=== PATIENT | male | born 1970 | race Caucasian/White ===

== ENCOUNTER 2016-08-03 19:09 | Inpatient (IN) | payer BC ==
[2016-08-03] MEDS ORDERED: IV FLUID CONTINUATION 1,000 ML IV ONE (19:10)
[2016-08-03] MEDS ORDERED: SODIUM CHLORIDE 0.9% 1,000 ML IV ONE (19:15)
[2016-08-03] MEDS ORDERED: NITROGLYCERIN SL TABS 0.4 MG TAB SUBLINGUAL ONE ×3 (19:20→20:30)
[2016-08-03] MEDS ORDERED: MIDAZOLAM 2 MG/2 ML VIAL ONE (19:20)
[2016-08-03] MEDS ORDERED: MIDAZOLAM 2 MG/2 ML VIAL IVP ONE (19:21)
[2016-08-03] MEDS ORDERED: LIDOCAINE 2% INJ 20 MG/ML SQ ONE (19:25)
[2016-08-03] MEDS ORDERED: METOPROLOL TARTRATE 5 MG/5 ML VIAL IVP ONE ×3 (19:29→19:54)
[2016-08-03] MEDS: METOPROLOL TARTRATE 5 MG/5 ML VIAL IVP ONE ×2 (19:31→19:44)
[2016-08-03] MEDS ORDERED: BIVALIRUDIN BOLUS 250 MG/50 ML IV ONE (19:36)
[2016-08-03] MEDS ORDERED: BIVALIRUDIN 250 MG in SODIUM CHLORIDE 0.9% 50 ML IV ONE (19:37)
[2016-08-03] MEDS ORDERED: fentaNYL (PF) 50 MCG/ML 2 ML AMP ONE (19:41)
[2016-08-03] MEDS ORDERED: fentaNYL (PF) 50 MCG/ML 2 ML AMP IV ONE (19:42)
[2016-08-03] MEDS: HYDROmorphone 2 MG/ML 1 ML SYRINGE IVP ONE ×3 (19:44→20:20)
[2016-08-03] MEDS ORDERED: HYDROmorphone 2 MG/ML 1 ML SYRINGE ONE (19:44)
[2016-08-03] MEDS ORDERED: niCARdipine 25 MG/10 ML VIAL ONE (19:45)
[2016-08-03] MEDS: NITROGLYCERIN 1000MCG/10ML SYRINGE INTRACORON ONE ×2 (19:45→20:05)
[2016-08-03] MEDS ORDERED: niCARdipine Syringe (1,000 mcg/10 mL) INTRACORON ONE (19:54)
[2016-08-03] MEDS ORDERED: PRASUGREL 10 MG TAB ONE (20:11)
[2016-08-03] MEDS ORDERED: IOHEXOL 350 MG/ML 100 ML BOTTLE INJ ONE (20:15)
[2016-08-03] MEDS ORDERED: PRASUGREL 10 MG TAB PO ONE (20:20)
[2016-08-03] MEDS ORDERED: ATROPINE SULFATE 0.1 MG/ML 10ML SYRINGE IV PRN (20:31)
[2016-08-03] MEDS ORDERED: RX INFO: IV CONTRAST WAS GIVEN 1 EACH MISC MISCELLANE PRN (20:31)
[2016-08-03] MEDS ORDERED: MAG HYDROX/AL HYDROX/SIMETH 30 ML CUP PO PRN (20:31)
[2016-08-03] MEDS ORDERED: NITROGLYCERIN SL TABS 0.4 MG TAB SUBLINGUAL PRN (20:31)
[2016-08-03] MEDS ORDERED: ZOLPIDEM 5 MG TAB PO PRN (20:31)
[2016-08-03 20:51] LABS: Glucose,Whole Blood 113 mg/dL (75-99)
[2016-08-03] MEDS: SODIUM CHLORIDE 0.9% 1,000 ML IV SCH (20:56)
[2016-08-03] MEDS: ATORVASTATIN 80 MG TAB PO SCH (21:13)
[2016-08-03] MEDS: amLODIPine 5 MG TAB PO SCH (21:13)
[2016-08-03] MEDS: METOPROLOL TARTRATE 25 MG TAB PO SCH (21:14)
[2016-08-03 21:26] VITALS: BMI 31.8
[2016-08-03] MEDS: HYDROmorphone 1 MG/ML 1 ML SYRINGE IVP PRN (22:26)
[2016-08-04] MEDS ORDERED: HYDROmorphone 1 MG/ML 1 ML SYRINGE ONE (04:34)
[2016-08-04] MEDS: HYDROmorphone 1 MG/ML 1 ML SYRINGE IVP PRN (04:37)
[2016-08-04 04:51] LABS: Basophils # (A) 0.1 k/uL (0-0.2); Basophils % (A) 1 %; CH 30.1; CHCM 30.7; Eosinophils # (A) 0.1 k/uL (0-0.7); Eosinophils % (A) 1 %; HCT 47.2 % (39.0-53.0); HGB 14.9 gm/dL (13.0-17.5); Hypochromasia Slight; Luc # (Auto) 0.29; Luc % (Auto) 3; Lymphocytes # (A) 1.5 k/uL (1.0-4.8); Lymphocytes % (A) 15 %; MCHC 31.5 g/dL (31.0-37.0); MCV 98.5 fL (80.0-100.0); Mean Platelet Volume 7.6; Monocytes # (A) 0.8 k/uL (0-1.0); Monocytes % (A) 8 %; Neutrophils # (A) 7.1 k/uL (1.3-7.7); Neutrophils % (A) 73 %; RDW 14.4 % (11.5-15.5); WBC 9.9 k/uL (3.8-10.6); WBC (Perox) 10.01
[2016-08-04 04:58] LABS: Anion Gap 13 mmol/L; Blood Urea Nitrogen 14 mg/dL (9-20); Calcium 8.7 mg/dL (8.4-10.2); Carbon Dioxide 22 mmol/L (22-30); Chloride 102 mmol/L (98-107); Glucose 106 mg/dL (74-99); Non-African American GFR(MDRD) >60 (>60 ml/min/1.73 sqM); Potassium 5.1 mmol/L (3.5-5.1); Sodium 137 mmol/L (137-145)
--- NOTE | 2016-08-04 05:08 | HP ---
DATE OF ADMISSION: This is a 45-year-old gentleman who sees Dr. Dmitri Mclean in the outpatient setting. 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 He also has hypertension. He has had cervical spine and lumbar spine surgeries performed. The last surgery was in April 2016 of his cervical spine surgery. He does quite a bit of weight lifting and some elliptical exercise on a regular basis. He was doing fine until about 3:00 today. He felt a little uncomfortable between 3 and 4. At 3:45, started lifting weights and as he was lifting weights he developed chest pressure and came into the emergency room with at [facility] and he was having ongoing chest pain, diaphoresis. EKG revealed anterior ST elevation and after reviewing the EKG, I promptly advised him to be transferred to the [facility]. I evaluated the patient in the [facility]. He was having chest pain, hemodynamically stable. He was in fact hypertensive and indicated to me the pain was constant without any waxing or waning since about 4:00 today. I saw him in the emergency room about a little after 7 p.m. I proceeded to perform coronary angiography and intervention explained to the patient the rationale, risks, benefits, options and proceeded to perform the procedure expeditiously. PAST MEDICAL HISTORY: 1. Strong family history of coronary artery disease. 2. Hypertension. 3. 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 The last surgery was of the cervical spine sometime in April of last year. Medications at home include: 1. Amlodipine 2. Lisinopril. ALLERGIES: None. REVIEW OF SYSTEMS: Remarkable for some arthritic pains, but no hematemesis, melena, genitourinary symptoms, fever with chills, or cough with expectoration. On examination, blood pressure was 170/96, pulse rate was about 100 per minute. HEENT: Unremarkable. Fundus was not examined by me. Neck is supple. No JVD. I do not hear a carotid bruit. Heart exam reveals S1 and S2 heard normally. Heart sounds heard distantly. Lungs are clear. Abdomen is soft, nontender. Lower extremities reveal normal pulses. No edema. Central nervous system was normal. EKG revealed sinus mechanism, J-point elevation and ST elevation in leads V1 to V4 suggestive of acute anterior DE. IMPRESSION: 1. Acute anterior ST elevation myocardial infarction. 2. Hypertension. 3. Episode of chest pain occurred when the patient was doing intense activity, lifting heavy weights, probably plaque rupture situation. RECOMMENDATIONS: Urgent coronary angiography and intervention was advised and I proceeded to perform procedure expeditiously. Risks, benefits, options were explained.
[2016-08-04] MEDS: METOPROLOL TARTRATE 25 MG TAB PO SCH (09:04)
[2016-08-04] MEDS: LISINOPRIL 20 MG TAB PO SCH (09:04)
[2016-08-04] MEDS: ASPIRIN 81 MG CHEW PO SCH (09:04)
--- NOTE | 2016-08-04 10:53 | CC ---
DATE OF SERVICE: 08/03/2016. PROCEDURE: Left heart catheterization and coronary angiography. PERFORMED BY: Dr. Delores Merchant. CLINICAL INFORMATION: Mr. Pablo Jules is a 45-year-old gentleman with a strong family history of premature coronary artery disease, hypertension, and cervical and lumbar spine degenerative disease came into [facility] emergency room with chest pain ST elevation involving anterior leads and he was advised prompted coronary angiography and transferred to [facility] for the procedure. Risks, benefits, options and rationale were explained. PROCEDURE NOTE: Under local anesthesia and strict aseptic precautions, a 6 Persian introducer was placed in the right femoral artery. Using a standard right Asmita catheter, I performed coronary angiography. I used the same catheter to check LV pressures, but I gram was not performed. I used guide catheter for left coronary injection and then proceeded to perform intervention expeditiously. Left ventriculogram was not performed. CORONARY ANGIOGRAPHIC FINDINGS : RIGHT CORONARY ARTERY: Large dominant vessel. No significant disease, distally bifurcates into PDA and PLV, both of which supply a sizable amount of myocardium. Right coronary artery is free of significant disease and is a very dominant vessel. LEFT MAIN CORONARY ARTERY: A short, patent, disease-free vessel that immediately bifurcates into LAD and circumflex. LEFT ANTERIOR DESCENDING CORONARY ARTERY: This vessel gives off 2 small diagonal branch and then is totally occluded, seen as a stump, in the cranial projection. Opacified segment of LAD and diagonal are free of significant disease, have minor irregularities. LEFT POSTERIOR CIRCUMFLEX CORONARY ARTERY: Technically, a nondominant vessel; gives off a single obtuse marginal that runs in the AV groove, has minor irregularities. No significant disease is noted in the circumflex system. LEFT VENTRICULOGRAM: This was not performed. FINAL IMPRESSION: This patient has a right dominant system, no significant disease in the dominant RCA and the nondominant circumflex. LAD is totally occluded after the second diagonal branch and this appears to the culprit lesion. This is a flush 100% occlusion culprit vessel. LV pressures were elevated but LV gram was not performed. RECOMMENDATIONS: I recommended intervention of the LAD and proceeded to perform this in the same setting. The patient received conscious sedation of about 15 minutes during coronary angiography with Versed and Benadryl.
--- NOTE | 2016-08-04 10:59 | PTCA ---
DATE OF SERVICE: 08/03/2016. PROCEDURE: PTCA and stenting of totally occluded mid LAD performed in the setting of an acute MT as a primary intervention. Performed by: Dr. Delores Merchant. CLINICAL INFORMATION: Mr. Pablo Jules is a 45-year-old gentleman with a strong family history of premature coronary artery disease, hypertension, and cervical and lumbar spine degenerative disease came into [facility] emergency room with chest pain ST elevation involving anterior leads and he was advised prompted coronary angiography and transferred to [facility] for the procedure. Risks, benefits, options and rationale were explained. PROCEDURE NOTE: The existing 6 Macedonian introducer in the right femoral artery was used to perform the procedure. I used a standard left Asmita guide catheter to cannulate the left coronary artery. A BMW wire was used to cross the lesion. A 2.5 caliber, 12 mm long Trek balloon was used to dilate the total occlusion. The patient had ongoing chest pain and there was improvement, some thrombus dislodged and went distally, had more chest pain, but remained hemodynamically stable. I then advanced initially a 22 mm long, 3.0 caliber Xience stent, but this stent was longer and therefore I took this out and switched over to an 18 mm long, 3.0 caliber Xience stent and deployed this 14 atmospheres. There was significant improvement in angiographic appearance but the proximal portion of the stent still was not well expanded. I then used a 3.5 caliber 15 mm long NC Trek balloon and with this I gave a prolonged inflation. Excellent angiographic result was achieved. Patient ST segments improved, but did not normalize. His chest pain was relieved completely. He was hemodynamically stable. He received Angiomax bolus and infusion. He also received 60 mg of Prasugrel. Excellent angiographic result was achieved. He has one drug-eluting stent, a Xience 18 mm length in the mid LAD. Excellent angiographic result was noted. Total relief of chest pain was noted. EKG improved, but did not normalize. The sheath was then taken out and a Perclose device used to secure hemostasis and he was sent to the room in stable condition. Results were then discussed with the patient and his . He was sent to the ICU in stable condition. Excellent angiographic result without complication was achieved. This patient received conscious sedation for about 40 minutes during percutaneous coronary intervention of the LAD. This was provided with a combination of Versed, Dilaudid and also Benadryl. The patient was observed very closely for oxygenation. The patient tolerated the procedure well without complications.
--- NOTE | 2016-08-04 11:01 | LTR ---
August 03, 2016 RE: Jorge A Pablo Dear Dr. Mclean: Thank you for the opportunity to participate in the care of Mr. Pablo Jules. This gentleman presented with acute anterior CT to [facility], transferred to [facility], underwent prompt intervention and stenting of mid LAD with a drug-eluting stent. Excellent angiographic result was achieved. He will have myocardial damage but hopefully the damage will be smaller. He will be on dual antiplatelet therapy without interruption for one year along with statin and beta blockers. Thank you for your kind referral. Please call with questions. With kindest regards, Sincerely, ADDI SEAMAN MD
--- NOTE | 2016-08-04 12:23 | ECHOF ---
Referral Reason:Acute Ant MD S/P PCI of LAD MEASUREMENTS -------- HEIGHT: 180.3 cm WEIGHT: 102.5 kg BP: 149/87 RVIDd: 3.5 cm (< 3.3) IVSd: 1.1 cm (0.6 - 1.1) LVIDd: 5.1 cm (3.9 - 5.3) LVPWd: 1.3 cm (0.6 - 1.1) IVSs: 1.4 cm LVIDs: 4.0 cm LVPWs: 1.9 cm LA Diam: 3.7 cm (2.7 - 3.8) LAESV Index (A-L): 32.96 ml/m Ao Diam: 3.3 cm (2.0 - 3.7) AV Cusp: 2.5 cm (1.5 - 2.6) MV EXCURSION: 22.213 mm (> 18.000) MV EF SLOPE: 118 mm/s (70 - 150) EPSS: 0.2 cm MV E Chito: 0.84 m/s MV DecT: 159 ms MV A Chito: 0.72 m/s MV E/A Ratio: 1.17 RAP: 5.00 mmHg RVSP: 36.22 mmHg FINDINGS -------- Sinus rhythm. This was a technically good study. The left ventricular size is normal. There is mild concentric left ventricular hypertrophy. Overall left ventricular systolic function is moderately impaired with, an EF between 35 - 40 %. Mid anterior LV wall motion is hypokinetic. Mid anteroseptal LV wall motion is hypokinetic. Apical anterior LV wall motion is hypokinetic. Apical lateral LV wall motion is hypokinetic. Apical septum LV wall motion is akinetic. The right ventricle is mildly enlarged. LA is midly dilated 29-33ml/m2. The right atrium is normal in size. The aortic valve is trileaflet and appears structurally normal. The mitral valve is normal. Mild mitral regurgitation is present. Mild tricuspid regurgitation present. There is mild pulmonary hypertension. The right ventricular systolic pressure, as measured by Doppler, is 36.22mmHg. Trace/mild (physiologic) pulmonic regurgitation. Possible Thrombus in LV Surprise The aortic root size is normal. There is no pericardial effusion. CONCLUSIONS -------- 1. Sinus rhythm. 2. The aortic valve is trileaflet and appears structurally normal. 3. Mild tricuspid regurgitation present. 4. There is mild pulmonary hypertension. 5. Trace/mild (physiologic) pulmonic regurgitation. 6. Possible Thrombus in LV Surprise 7. The aortic root size is normal. 8. There is no pericardial effusion. 9. This was a technically good study. 10. There is mild concentric left ventricular hypertrophy. 11. Mid anterior LV wall motion is hypokinetic. 12. Mid anteroseptal LV wall motion is hypokinetic. 13. Apical anterior LV wall motion is hypokinetic. 14. Apical septum LV wall motion is akinetic. 15. The right ventricle is mildly enlarged. 16. LA is midly dilated 29-33ml/m2. BRICKMASON APPRENTICE: Peggy White RDCS
[2016-08-04] MEDS: PRASUGREL 10 MG TAB PO SCH (12:57)
[2016-08-04] MEDS: HYDROcodone/APAP 10-325MG 1 EACH TAB PO PRN ×2 (13:08→18:29)
[2016-08-04 15:09] LABS: Cholesterol 157 mg/dL (<200); HDL Cholesterol 20 mg/dL (40-60); Triglycerides 103 mg/dL (<150)
[2016-08-04] MEDS: SODIUM CHLORIDE 0.9% 1,000 ML IV SCH (16:29)
[2016-08-04] MEDS: SPIRONOLACTONE 25 MG TAB PO SCH ×2 (16:29→17:23)
--- NOTE | 2016-08-04 17:13 | PN ---
45-year-old gentleman admitted by Dr. Delores Merchant with acute inferior myocardial infarction, primary care physician is Dr. Mclean. No questions. The patient is known to have hypertension and had cervical surgery in April and the patient developed acute chest pain while he was lifting weights and came in with anterior myocardial wall infarction and patient and cardiac catheterization and angioplasty done by my associate, mid LAD was totally occluded and was stented. Patient's ejection fraction is 35% to 40% at the present time with hypokinetic anterior wall and apex. Patient is doing very well. Patient is a nonsmoker, other than strong family history of coronary artery disease, hypertension age and gender, do not know about the cholesterol and will get lipid panels in the morning. It has been ordered after the heart cath. Patient is currently on appropriate medications. We will start him on spironolactone because of the LV dysfunction and change metoprolol to carvedilol 6.25 mg p.o. b.i.d., and add spironolactone and along with Lisinopril 20 mg. Patient's vital signs are stable with a pulse rate of 55 beats per minute and regular, blood pressure of 141/71, respirations of 20. Head normocephalic. HEENT unremarkable. Neck is supple. No thyroid enlargement. No bruit noted. Good carotid upstroke bilaterally. Chest is symmetrical. CARDIAC EXAMINATION: Regular rate and rhythm. S1 and S2. Patient is already on Effient, aspirin, antiplatelet agents and also on Amlodipine for the blood pressure. ABDOMEN: Soft, no organomegaly. Complained of mild pain, small hematoma without any bruit noted. If there is continued pain we will do an ultrasound of the groin. Patient was informed of the findings of the echocardiogram and I spoke with the family at length about taking all these medications and trying to relax until the groin heals before he goes back to work. Patient wants to go back to work as soon as possible. ASSESSMENT: 1. Acute anterior myocardial wall infarction, status post stenting of the mid left anterior descending coronary artery. 2. Hypertension. 3. Hyperlipidemia. 4. Strong family history of coronary artery disease. Patient's prognosis is guarded with continued medical therapy.
[2016-08-04] MEDS: CARVEDILOL 6.25 MG TAB PO SCH (17:23)
[2016-08-04] MEDS: ATORVASTATIN 80 MG TAB PO SCH (20:10)
[2016-08-04] MEDS: amLODIPine 5 MG TAB PO SCH (20:10)
[2016-08-05] MEDS: HYDROcodone/APAP 10-325MG 1 EACH TAB PO PRN ×2 (04:42→12:33)
[2016-08-05] MEDS: CARVEDILOL 6.25 MG TAB PO SCH (06:49)
[2016-08-05] MEDS: ASPIRIN 81 MG CHEW PO SCH (07:41)
[2016-08-05] MEDS: SPIRONOLACTONE 25 MG TAB PO SCH (07:41)
[2016-08-05] MEDS: PRASUGREL 10 MG TAB PO SCH (07:42)
[2016-08-05] MEDS: LISINOPRIL 20 MG TAB PO SCH (07:42)
[2016-08-05 09:25] VITALS: RESP 16; TEMP 99.3
--- NOTE | 2016-08-05 09:34 | P.PN ---
Subjective Principal diagnosis: Acute anterior wall myocardial infarction This is a pleasant 45-year-old gentleman with history of hypertension , strong family history of premature coronary artery disease, history of cervical spine and lumbar spine degenerative disease. He presented to the hospital with an acute anterior wall myocardial infarction. Patient underwent angioplasty with stenting of the left anterior descending artery. Echocardiogram with Doppler study was performed which revealed an ejection fraction of 35-40%. Echo also revealed a possible thrombus in the LV apex. Blood pressure this morning 148/60 with a heart rate in the 80s. Temperature 99.3. CBC normal. Potassium 5.1, BUN 14, creatinine 0.8. Patient is currently on aspirin 81 mg daily, Lipitor 80 mg daily, Coreg 6.25 mg twice a day , lisinopril 20 mg daily, Effient 10 mg daily, Aldactone 25 mg daily, Norvasc 5 mg daily, and sublingual nitroglycerin as needed for chest pain. He was seen and examined this morning, denies any chest pain or difficulty in breathing. He has been up ambulating in the hallway without any difficulty. No arrhythmias have been noted on the monitor. Objective - Vital Signs Vital signs: Vital Signs Temp 97.2 F L 08/05/16 04:00 Pulse 83 08/05/16 04:00 Resp 18 08/05/16 04:00 BP 127/89 08/05/16 04:00 Pulse Ox 98 08/05/16 04:00 Intake & Output 08/04/16 08/05/16 08/05/16 18:59 06:59 18:59 Intake Total 600 1400 0 Output Total 1280 Balance -680 1400 0 Weight 103.7 kg Intake: IV 1400 Sodium Chloride 0.9% 1, 1400 000 ml @ 75 mls/hr IV . [id number] BESSIE Rx#:[id number] Intake, IV Titration 600 Amount Sodium Chloride 0.9% 1, 600 000 ml @ 75 mls/hr IV . [id number] BESSIE Rx#:[id number] Oral 0 Output: Urine 1280 Other: # Voids 1 0 - Exam PHYSICAL EXAMINATION: HEENT: Head is atraumatic, normocephalic. Pupils equal, round. Neck is supple. There is no elevated jugular venous pressure. HEART EXAMINATION: Heart S1, S2 normal. No murmur or gallop heard. CHEST EXAMINATION: Lungs are clear to auscultation and precussion. No chest wall tenderness is noted on palpation or with deep breathing. ABDOMEN: Soft, nontender. Bowel sounds are heard. No organomegaly noted. Right groin, small nodule felt, mild tenderness, no bruit, no hematoma. EXTREMITIES: 2+ peripheral pulses with no evidence of peripheral edema and no calf tenderness noted. NEUROLOGIC patient is awake, alert and oriented -3. . - Labs CBC & Chem 7: 08/04/16 04:14 08/04/16 04:14 Labs: Abnormal Lab Results - Last 24 Hours (Table) 08/04/16 Range/Units 04:14 LDL Cholesterol, Calc 116 H (0-99) mg/dL HDL Cholesterol 20 L (40-60) mg/dL Assessment and Plan (1) Anterior myocardial infarction Status: Acute (2) Presence of stent in LAD coronary artery Status: Acute (3) HTN (hypertension) Status: Acute (4) Hyperlipemia Status: Acute (5) Family history of coronary arteriosclerosis Status: Acute (6) Degenerative disc disease Status: Acute Plan: Echocardiogram with Doppler study was reviewed by Dr. Brown, who felt that there were is no evidence of apical thrombus. Patient is quite eager to be discharged home today. He was advised that we would like to keep him for another 24 [address] He spoke with Dr. Brown, who felt that he could be discharged home with the advice to take it easy. Patient will be discharged home on aspirin 81 mg daily, Lipitor 80 mg daily, Coreg 6.25 mg one tablet by mouth twice a day, lisinopril 20 mg daily, Effient 10 mg daily, Aldactone 25 mg daily, Norvasc 5 mg daily, sublingual nitroglycerin as needed for chest pain. Patient has been provided prescriptions for all of the above medications and he has been educated regarding them. We will make him a follow-up appointment to see Dr. VJ Merchant in the office next week. DNP note has been reviewed, I agree with a documented findings and plan of care. Patient was seen and examined.
[2016-08-05 09:51] VITALS: BP 124/73; PULSE 84
== END 2016-08-05 15:53 | disposition home or self-care (01) | DRG 247 ==
LOC: 6ICU 19:13 → 6SEL 08-04 19:58
PROVIDERS: ADMIT Internal Medicine Interventional Cardiology; ATTEND Internal Medicine Interventional Cardiology
PROC: B2111ZZ Fluoroscopy of Multiple Coronary Arteries using Low Osmolar Contrast (ICD-10-PCS; 2016-08-03)
PROC: B2151ZZ Fluoroscopy of Left Heart using Low Osmolar Contrast (ICD-10-PCS; 2016-08-03)
PROC: 027034Z Dilation of Coronary Artery, One Artery with Drug-eluting Intraluminal Device, Percutaneous Approach (ICD-10-PCS; principal; 2016-08-03 19:13)
PROC: 4A023N7 Measurement of Cardiac Sampling and Pressure, Left Heart, Percutaneous Approach (ICD-10-PCS; 2016-08-03 19:13)
DX: I21.09 ST elevation (STEMI) myocardial infarction involving other coronary artery of anterior wall (principal); I10 Essential (primary) hypertension; I25.10 Atherosclerotic heart disease of native coronary artery without angina pectoris; E78.5 Hyperlipidemia, unspecified; M51.36 Other intervertebral disc degeneration, lumbar region; M50.30 Other cervical disc degeneration, unspecified cervical region; Z82.49 Family history of ischemic heart disease and other diseases of the circulatory system; Z79.899 Other long term (current) drug therapy
CPT/HCPCS: 80048; 80061; 84484; 85025; 85347; 93306; 93458; 94760

== ENCOUNTER 2018-06-08 00:01 | Emergency (ER) | payer BC ==
[2018-06-08] MEDS ORDERED: DIAZEPAM 5 MG/ML 2 ML INJ IVP STA (00:27)
[2018-06-08] MEDS ORDERED: SODIUM CHLORIDE 0.9% 500 ML 500 ML IV STA (00:27)
[2018-06-08] MEDS ORDERED: HYDROmorphone 2 MG/ML 1 ML SYRINGE IVP STA ×2 (00:27→03:00)
[2018-06-08] MEDS ORDERED: ONDANSETRON 4 MG/2 ML VIAL IVP STA (00:27)
[2018-06-08 00:48] LABS: Basophils % (A) 0 %; Eosinophils # (A) 0.4 k/uL (0-0.7); Eosinophils % (A) 3 %; HCT 46.5 % (39.0-53.0); HGB 15.3 gm/dL (13.0-17.5); Lymphocytes # (A) 1.3 k/uL (1.0-4.8); Lymphocytes % (A) 12 %; MCH 31.9 pg (25.0-35.0); MCV 96.7 fL (80.0-100.0); Monocytes # (A) 0.7 k/uL (0-1.0); Monocytes % (A) 7 %; Neutrophils # (A) 8.3 k/uL (1.3-7.7); Neutrophils % (A) 76 %; Platelet Count 276 k/uL (150-450); RDW 13.3 % (11.5-15.5); WBC 10.8 k/uL (3.8-10.6)
[2018-06-08 00:56] LABS: ALT 85 U/L (21-72); AST 51 U/L (17-59); Albumin 3.6 g/dL (3.5-5.0); Alkaline Phosphatase 33 U/L (38-126); Anion Gap 9 mmol/L; Blood Urea Nitrogen 15 mg/dL (9-20); Calcium 8.8 mg/dL (8.4-10.2); Carbon Dioxide 23 mmol/L (22-30); Chloride 106 mmol/L (98-107); Glucose 129 mg/dL (74-99); Magnesium 1.8 mg/dL (1.6-2.3); Potassium 4.4 mmol/L (3.5-5.1); Sodium 138 mmol/L (137-145); Total Bilirubin 0.6 mg/dL (0.2-1.3); Total Protein 6.4 g/dL (6.3-8.2)
[2018-06-08 01:06] LABS: INR 0.8 (<1.2); Partial Thromboplastin Time 21.9 sec (22.0-30.0); Prothrombin Time 9.3 sec (9.0-12.0)
--- NOTE | 2018-06-08 01:23 | ED ---
Back Pain HPI - General Chief Complaint: Back Pain/Injury Stated Complaint: Back Pain Time Seen by Provider: 06/08/18 00:20 Source: patient Limitations: no limitations - History of Present Illness Initial Comments: 47-year-old male patient presents to the emergency department today for evaluation of upper back pain. Patient states there is an intense sharp stabbing pain between his shoulder blades. Patient states the pain started on Wednesday but has been progressively worsening since its onset. Patient states that today the pain is unbearable. States he cannot take a breath, cough, or move without the pain becoming significantly worse. Patient states he feels short of breath with this. Denies any chest pain. Denies any abdominal pain, nausea, vomiting, or sweats. Denies any dizziness or weakness. Patient states he does have history of myocardial infarction hypertension. Patient states he has been taking his medications as directed. Patient denies any recent rash, fever, chills, diarrhea, constipation, back pain, numbness, tingling, hematuria , dysuria, urinary urgency, urinary frequency, headache, visual changes, or any other complaints. - Related Data Home Medications Medication Instructions Recorded Confirmed Diazepam [Valium] 5 mg PO TID PRN 08/03/16 08/03/16 Gabapentin [Neurontin] 300 mg PO TID 08/03/16 08/03/16 HYDROcodone/APAP 10-325MG [[place] 1 tab PO TID PRN 08/03/16 08/03/16 10-325] Loratadine-Pseudoeph 10-240 mg 1 tab PO DAILY PRN 08/03/16 08/03/16 [Claritin-D 24 Hr] Previous Rx's Medication Instructions Recorded Aspirin 81 mg PO DAILY #30 chew 08/05/16 Atorvastatin [Lipitor] 80 mg PO HS #30 tab 08/05/16 Carvedilol [Coreg] 6.25 mg PO BID-W/MEALS #60 tab 08/05/16 Lisinopril [Zestril] 20 mg PO DAILY #30 tab 08/05/16 Nitroglycerin Sl Tabs [Nitrostat] 0.4 mg SUBLINGUAL Q5M PRN #25 tab 08/05/16 Prasugrel [Effient] 10 mg PO DAILY #30 tab 08/05/16 Spironolactone [Aldactone] 25 mg PO DAILY #30 tab 08/05/16 amLODIPine [Norvasc] 5 mg PO HS #30 tab 08/05/16 Diazepam [Valium] 5 mg PO Q8H PRN 3 Days #9 tab 06/08/18 Hydrocodone/Acetaminophen [[place] 1 tab PO Q6HR PRN #12 tab 06/08/18 5-325] Allergies Allergy/AdvReac Type Severity Reaction Status Date / Time No Known Allergies Allergy Verified 06/08/18 00:08 Review of Systems ROS Statement: Those systems with pertinent positive or pertinent negative responses have been documented in the HPI. ROS Other: All systems not noted in ROS Statement are negative. Past Medical History Past Medical History: Hypertension, Myocardial Infarction ([place]) History of Any Multi-Drug Resistant Organisms: None Reported Past Surgical History: Back Surgery, Heart Catheterization With Stent, Orthopedic Surgery Additional Past Surgical History / Comment(s): c-spine fusion x3, lower back fusion, ACL repair to Right knee x2, carpal tunnel sx to left hand, Past Anesthesia/Blood Transfusion Reactions: Postoperative Nausea & Vomiting ( PONV) Past Psychological History: No Psychological Hx Reported Smoking Status: Never smoker Past Alcohol Use History: Rare Past Drug Use History: None Reported General Exam Limitations: no limitations General appearance: alert, in no apparent distress, other (This is a well- developed, well-nourished adult male patient in mild distress related to pain. Vital signs upon presentation are temperature 98.3F, pulse 100, respirations 25 , blood pressure 201/111, pulse ox 99% on room air.) Eye exam: Present: normal appearance, PERRL, EOMI. Absent: scleral icterus, conjunctival injection, periorbital swelling ENT exam: Present: normal exam, normal oropharynx, mucous membranes moist Respiratory exam: Present: normal lung sounds bilaterally. Absent: respiratory distress, wheezes, rales, rhonchi, stridor Cardiovascular Exam: Present: normal rhythm, tachycardia, normal heart sounds. Absent: systolic murmur, diastolic murmur, rubs, gallop, clicks GI/Abdominal exam: Present: soft, normal bowel sounds. Absent: distended, tenderness, guarding, rebound, rigid Extremities exam: Present: normal inspection, full ROM, normal capillary refill , other (Skin to all 4 extremities is pink, warm, and dry. Cap refills less than 3 seconds. Radial pulses, pedal pulses, posttibial pulses are 2+ and equal bilaterally.). Absent: tenderness, pedal edema, joint swelling, calf tenderness Neurological exam: Present: alert, oriented X3, CN II-XII intact Psychiatric exam: Present: normal affect, normal mood Skin exam: Present: warm, dry, intact, normal color. Absent: rash Course Vital Signs 06/08/18 06/08/18 06/08/18 00:05 01:19 02:07 Temperature 98.3 F Pulse Rate 100 96 Respiratory 25 H 18 Rate Blood Pressure 201/111 174/108 147/84 O2 Sat by Pulse 99 96 Oximetry 06/08/18 03:08 Temperature 99.2 F Pulse Rate 95 Respiratory 18 Rate Blood Pressure 165/94 O2 Sat by Pulse 93 L Oximetry Medical Decision Making - Medical Decision Making 47-year-old male patient presented to the emergency department today for evaluation of severe pain between the shoulder blades. Physical examination did reveal tenderness surrounding the area. Patient reported increased pain with deep breathing, coughing, or moving. Patient did have significantly elevated blood pressure upon arrival. There was some concern for aortic dissection so we did perform CT angiography of the chest, abdomen, pelvis. This testing was negative for evidence of dissection or aneurysm. Labs reviewed and did have evidence of elevated troponin at 0.037. I did discuss findings with the patient and given his history of myocardial infarction and stent placement did recommend admission for cardiology evaluation and repeat troponin. Patient refused admission stating that he had to take care of his children. I did discuss risks of leaving including , permanent disability , or worsening of his symptoms. He verbalizes understanding and requested to be discharged. He did sign an AGAINST MEDICAL ADVICE form. He is instructed to follow-up with his first calender worker for recheck as soon as possible. He will be discharged also with medication to treat the muscle spasm of the upper back. He is instructed to follow-up with his primary care physician for further evaluation of this. Return parameters discussed in detail. He verbalizes understanding and agrees with this plan. - Lab Data Result diagrams: 06/08/18 00:34 06/08/18 00:34 Lab Results 06/08/18 06/08/18 06/08/18 Range/Units 00:34 00:34 00:34 WBC 10.8 H (3.8-10.6) k/uL RBC 4.80 (4.30-5.90) m/uL Hgb 15.3 (13.0-17.5) gm/dL Hct 46.5 (39.0-53.0) % MCV 96.7 (80.0-100.0) fL MCH 31.9 (25.0-35.0) pg MCHC 33.0 (31.0-37.0) g/dL RDW 13.3 (11.5-15.5) % Plt Count 276 (150-450) k/uL Neutrophils % 76 % Lymphocytes % 12 % Monocytes % 7 % Eosinophils % 3 % Basophils % 0 % Neutrophils # 8.3 H (1.3-7.7) k/uL Lymphocytes # 1.3 (1.0-4.8) k/uL Monocytes # 0.7 (0-1.0) k/uL Eosinophils # 0.4 (0-0.7) k/uL Basophils # 0.0 (0-0.2) k/uL PT (9.0-12.0) sec INR (<1.2) APTT (22.0-30.0) sec Sodium 138 (137-145) mmol/L Potassium 4.4 (3.5-5.1) mmol/L Chloride 106 (98-107) mmol/L Carbon Dioxide 23 (22-30) mmol/L Anion Gap 9 mmol/L BUN 15 (9-20) mg/dL Creatinine 0.87 (0.66-1.25) mg/dL Est GFR (CKD-EPI)AfAm >90 (>60 ml/min/1.73 sqM) Est GFR (CKD-EPI)NonAf >90 (>60 ml/min/1.73 sqM) Glucose 129 H (74-99) mg/dL Calcium 8.8 (8.4-10.2) mg/dL Magnesium 1.8 (1.6-2.3) mg/dL Total Bilirubin 0.6 (0.2-1.3) mg/dL AST 51 (17-59) U/L ALT 85 H (21-72) U/L Alkaline Phosphatase 33 L (38-126) U/L Total Creatine Kinase 221 H (55-170) U/L CK-MB (CK-2) 3.8 H (0.0-2.4) ng/mL CK-MB (CK-2) Rel Index 1.7 Troponin I 0.037 H* (0.000-0.034) ng/mL Total Protein 6.4 (6.3-8.2) g/dL Albumin 3.6 (3.5-5.0) g/dL 06/08/18 Range/Units 00:34 WBC (3.8-10.6) k/uL RBC (4.30-5.90) m/uL Hgb (13.0-17.5) gm/dL Hct (39.0-53.0) % MCV (80.0-100.0) fL MCH (25.0-35.0) pg MCHC (31.0-37.0) g/dL RDW (11.5-15.5) % Plt Count (150-450) k/uL Neutrophils % % Lymphocytes % % Monocytes % % Eosinophils % % Basophils % % Neutrophils # (1.3-7.7) k/uL Lymphocytes # (1.0-4.8) k/uL Monocytes # (0-1.0) k/uL Eosinophils # (0-0.7) k/uL Basophils # (0-0.2) k/uL PT 9.3 (9.0-12.0) sec INR 0.8 (<1.2) APTT 21.9 L (22.0-30.0) sec Sodium (137-145) mmol/L Potassium (3.5-5.1) mmol/L Chloride (98-107) mmol/L Carbon Dioxide (22-30) mmol/L Anion Gap mmol/L BUN (9-20) mg/dL Creatinine (0.66-1.25) mg/dL Est GFR (CKD-EPI)AfAm (>60 ml/min/1.73 sqM) Est GFR (CKD-EPI)NonAf (>60 ml/min/1.73 sqM) Glucose (74-99) mg/dL Calcium (8.4-10.2) mg/dL Magnesium (1.6-2.3) mg/dL Total Bilirubin (0.2-1.3) mg/dL AST (17-59) U/L ALT (21-72) U/L Alkaline Phosphatase (38-126) U/L Total Creatine Kinase (55-170) U/L CK-MB (CK-2) (0.0-2.4) ng/mL CK-MB (CK-2) Rel Index Troponin I (0.000-0.034) ng/mL Total Protein (6.3-8.2) g/dL Albumin (3.5-5.0) g/dL - EKG Data -: EKG Interpreted by Me EKG Comments: EKG obtained at 00 24 shows normal sinus rhythm. Ventricular rate is 98, KS interval 176, QRS duration 100, QT 316, QTC 403. No evidence of ST elevation or depression. - Radiology Data Radiology results: report reviewed, image reviewed CT angiography of the thoracic aorta was obtained. Report was reviewed in its entirety. Impression by Dr. Sanchez shows nonobstructive left renal calculus. No evidence of aortic aneurysm or dissection. No evidence of hemodynamic stenosis. Small hiatal hernia. Subsegmental atelectasis at the lung bases. He pancreas including pancreatic head. There is fairly uniform enhancement of the pancreas and I do not suspect a mass. Disposition Clinical Impression: Muscle spasm of back, Elevated troponin Disposition: Left Against Medical Advice Condition: Undetermined Instructions (If sedation given, give patient instructions): Chest Pain (ED), Muscle Spasm (ED) Additional Instructions: Follow-up with your first calender worker for recheck as soon as possible. Call in the morning for an appointment. Take medications as directed. Follow-up with your primary care physician for further evaluation. Return to the emergency department immediately for any new, worsening, or concerning symptoms. Prescriptions: Diazepam [Valium] 5 mg PO Q8H PRN 3 Days #9 tab PRN Reason: Muscle Spasm Hydrocodone/Acetaminophen [[place] 5-325] 1 tab PO Q6HR PRN #12 tab PRN Reason: Pain Is patient prescribed a controlled substance at d/c from ED?: No Referrals: None,Stated [Primary Care Provider] - 1-2 days Time of Disposition: 03:10
[2018-06-08 01:24] LABS: Creatine Kinase MB 3.8 ng/mL (0.0-2.4)
[2018-06-08 01:25] LABS: Troponin I 0.037 ng/mL (0.000-0.034)
--- NOTE | 2018-06-08 01:33 | CT ---
EXAMINATION TYPE: CT angio thor/abd pel aorta DATE OF EXAM: 06/08/2018 COMPARISON: None HISTORY: Patient presents with pain between shoulders. No prior. CT DLP: 1796.1 mGycm. Automated Exposure Control for Dose Reduction was Utilized. CONTRAST: CT scan of the thorax, abdomen and pelvis is performed with IV Contrast, patient injected with 100mL mL of Isovue 370. FINDINGS: There are 3-D post processed images. Exam performed without and with IV contrast. The lungs are clear of infiltrate. There is no pleural effusion. There is minimal subsegmental atelec tasis at the lung bases. There is no mediastinal adenopathy. Thoracic aorta shows no aneurysm or diss ection. There are no hilar masses. There is small hiatal hernia. Liver spleen appear normal. Bile ducts are not dilated. Gallbladder lulu ears normal. There is large pancreatic head. The remainder the pancreas is also a large and this coul d be normal variation. There is no adrenal mass. Kidneys show satisfactory contrast opacification. There is no hydronephrosi s. There is 4 mm calculus central left kidney. Ureters are not dilated. Abdominal aorta is normal in size. There is no evidence of thoracic or abdominal aortic aneurysm or dissection. There is no retrop eritoneal adenopathy. There is patency of the celiac artery and superior mesenteric artery and both r enal arteries. There is patency of the iliac arteries. I see no intestinal wall thickening. There is no ascites. There is no mesenteric edema. The thoracic and lumbar spine are intact. There is gynecoma stia. Appendix appears normal. IMPRESSION: Nonobstructing left renal calculus. No evidence of aortic aneurysm or dissection. No evid ence of hemodynamic stenosis. Small hiatal hernia. Subsegmental atelectasis at the lung bases. Bulky pancreas including pancreatic head. There is fairly uniform enhancement of the pancreas and I d o not suspect a mass.
[2018-06-08 02:09] VITALS: RESP 18
[2018-06-08] MEDS ORDERED: KETOROLAC 30 MG/ML 1 ML VIAL IVP STA (02:19)
[2018-06-08 03:09] VITALS: BP 165/94; PULSE 95; TEMP 99.2
== END 2018-06-08 03:19 | disposition left against medical advice (07) ==
LOC: EC 00:01
DX: M62.830 Muscle spasm of back (principal); R79.89 Other specified abnormal findings of blood chemistry; I10 Essential (primary) hypertension; I25.2 Old myocardial infarction; Z95.5 Presence of coronary angioplasty implant and graft; Z98.1 Arthrodesis status; Z98.890 Other specified postprocedural states; Z53.29 Procedure and treatment not carried out because of patient's decision for other reasons; Z79.899 Other long term (current) drug therapy; Z53.8 Procedure and treatment not carried out for other reasons
CPT/HCPCS: 36415; 71275; 74174; 80053; 82550; 82553; 83735; 84484; 85025; 85610; 85730; 93005; 96361; 96374; 96375; 96376; 99284

== ENCOUNTER → 2020-04-03 | Outpatient (CLI) | payer OTHER ==
--- NOTE | 2020-04-03 16:27 | MR ---
EXAMINATION TYPE: MR pituitary wo/w con DATE OF EXAM: 04/03/2020 COMPARISON: NONE HISTORY: Elevated prolactin level, evaluate for adenoma TECHNIQUE: Multiplanar, multisequence images of the brain and brainstem is performed without and with IV contras t, utilizing 10 mL intravenous Gadavist . Pituitary gland protocol. FINDINGS: Pituitary gland is not enlarged within the sella turcica. Pituitary stalk shows normal enha ncement and the midline coronal image 10. Postcontrast images show overall heterogeneity or heterogen eous enhancement without definitive area of focal nonenhancement to suggest microadenoma. Optic chias m is not effaced. Suprasellar cistern is maintained. The craniocervical junction appears within normal limits. No gross hydrocephalus. Midline structures are unremarkable. IMPRESSION: Suboptimal study with heterogeneous enhancement of the pituitary. No convincing MRI evide nce for pituitary microadenoma or macroadenoma.
== END | disposition home or self-care (01) ==
LOC: RADMRIMAIN 14:51
PROVIDERS: ATTEND Urology
DX: E22.1 Hyperprolactinemia (principal)
CPT/HCPCS: 70553; A9585